=== PATIENT | female | born 1950 | race Two or more races ===

== ENCOUNTER 2019-10-23 08:50 | Outpatient (CLI) | payer BC | END 2019-10-23 23:59 | disposition home or self-care (01) | LOC: WOU 08:50 | PROVIDERS: ATTEND Podiatrist Foot & Ankle Surgery | PROC: 0HBNXZX Excision of Left Foot Skin, External Approach, Diagnostic (ICD-10-PCS; principal; 2019-10-23) | DX: B35.3 Tinea pedis (principal); B07.0 Plantar wart | CPT/HCPCS: 88305-TC ==

== ENCOUNTER 2020-03-01 13:20 | Outpatient (CLI) | payer BC | END 2020-03-01 23:59 | disposition home or self-care (01) | LOC: WOU 13:20 | PROVIDERS: ATTEND Podiatrist Foot & Ankle Surgery | DX: Z09 Encounter for follow-up examination after completed treatment for conditions other than malignant neoplasm (principal); B35.3 Tinea pedis | CPT/HCPCS: G0463 ==